=== PATIENT | male | born 1935 | race African-American/Black ===

== ENCOUNTER 2025-08-22 14:07 | Inpatient (IN) ==
[2025-08-22 14:57] LABS: IMMATURE GRANULOCYTE # (AUTO) 0.0 (0.0-1.0); IMMATURE GRANULOCYTE % (AUTO) 0.2 % (0.0-5.0); RDW COEFFICIENT OF VARIATION 18.3 % (11.6-14.8)
[2025-08-22] MEDS: LASIX IVP STA (15:03)
[2025-08-22 15:09] LABS: CREATININE 1.23 mg/dL (0.60-1.10)
--- NOTE | 2025-08-22 15:14 | ED.PDOC ---
General HPI ED Provider: Dr. GLADYS VILLANUEVA MD Chief Complaint: Shortness of Air Stated Complaint: 89 yo BM complains of increasing CHAVEZ at 10 feet, sx for the past 2-3 days. No fever, cough or chest pain. No PND. Hx of CAD and had heart cath abut 8 months ago with 100% stenosis of the distal LAD with collaterals and moderate proximal lesion of OM1 and it was felt medical management is appropriate. He did have an ECHO then that showed ejection fx of 35-40%. He was admitted to [facility] in May and stay 2 days. He is on Bumex twice daily and takes one dose at nighttime and have "terrible time sleeping" due to frequent trips to the bathroom at night. He admits to drinking a lot of water and noticed some swelling in the legs and scrotal area. Unk if any weight gain. He said he went into [facility] at 170# and got to a low of 140#. Time Seen by Provider: 08/22/25 14:24 Mode of Arrival: Walk-In Information Source: Patient Exam Limitations: No limitations Primary Care Provider: SHARON ESTEVES Referred to ED by: Other (self) Nursing and Triage Documentation Reviewed and Agree: Yes Opioid Naive vs. Tolerant Does Patient Take Opioids?: No What is Opioid Naive?: *Opioid Naive implies the patient is not already taking opioids or not chronically receiving opioids on a daily basis. *PRN dosing is not "usually" associated with tolerance. *Patients are at higher risk of over-sedation and aspiration. What is Opioid Tolerant?: *Opioid Tolerance implies less than the expected response to an opioid. *Acquired tolerance is defined by the patient taking 60mg of oral morphine daily (or equianalgesic dose of another opioid) for 1 week or more. *Often associated with chronic pain. *May take more than usual dose to achieve desired pain control. Review of Systems Review Of Systems Constitutional: Denies Chills, Diaphoresis, Fever, Weakness or Loss of appetite Eyes: Reports No symptoms Ears, Nose, Mouth, Throat: Reports No symptoms Respiratory: Reports Shortness of Breath; Denies Cough Cardiac: Reports Edema; Denies Chest pain GI: Reports No symptoms : Denies Burning, Frequency or Hematuria Musculoskeletal: Reports No symptoms Skin: Reports No symptoms Neurological: Reports No symptoms PFSH [facility] Medical History Hyperlipemia E78.5 - Hyperlipidemia, unspecified (ICD-10) Hypertension I10 - Essential (primary) hypertension (ICD-10) Surgical History H/O hernia repair Z98.890 - Other specified postprocedural states (ICD-10) Z87.19 - Personal history of other diseases of the digestive system (ICD-10) Physical Exam Physical Exam Appearance: Reports Well-appearing and Well-nourished Pain Distress: None Eyes: Reports EOMI ENT: Reports Ears normal and Oropharynx normal Neck: Supple Respiratory: Reports Breath sounds equal, Respirations nonlabored, Crackles and Rhonchi; Denies Wheezes or Retractions Cardiovascular: Reports RRR, Pulses normal, No rub and No murmur GI/: Reports Soft, Nontender, No masses, Bowel sounds normal, No Organomegaly and Other (scrotal and lower abdominal wall edema) Musculoskeletal: Reports Normal strength, ROM intact and Edema Skin: Reports Warm and Dry Neurological: Reports Sensation intact and Motor intact Psychiatric: Reports Affect appropriate and Mood appropriate Interpretation EKG Interpretation EKG Interpretation By: ED Physician Time of EKG #1: 14:44 Rate: Normal Rhythm: Sinus Ectopy: PVCs [place]: Left Interpretation: NSR, LAD, inferior and ant infarct, age undetermined, Abnormal EKG Course Course 08/22/25 14:50 08/22/25 14:50 Orders, Labs, Meds: Lab Review 08/22/25 14:50 WBC 8.82 RBC 3.84 L Hgb 12.7 L Hct 38.9 L MCV 101.3 H MCH 33.1 H MCHC 32.6 RDW Coeff of [place] 18.3 H Plt Count 168 Immature Gran % (Auto) 0.2 Neut % (Auto) 64.7 Lymph % (Auto) 25.4 [place] % (Auto) 9.0 Eos % (Auto) 0.5 Baso % (Auto) 0.2 Neut # (Auto) 5.7 Lymph # (Auto) 2.2 [place] # (Auto) 0.8 Eos # (Auto) 0.0 Baso # (Auto) 0.0 Immature Gran # (Auto) 0.0 Sodium 138.7 Potassium 3.59 Chloride 98.6 Carbon Dioxide 35.2 H Anion Gap 8.49 BUN 32.8 H Creatinine 1.23 H Estimated GFR (MDRD) 67.00 BUN/Creatinine Ratio 26.66 Glucose 106.1 H Calcium 9.51 Total Bilirubin 0.82 AST 45.0 ALT 31.5 Alkaline Phosphatase 110.7 Troponin I 0.061 NT-Pro-B Natriuret Pep 48934 H Total Protein 7.94 Albumin 3.66 Globulin 4.28 Albumin/Globulin Ratio 0.85 Orders Category Date Time Status EKG-(ED & IP/OBS ONLY) Stat CARDIO 08/22/25 14:36 Completed Saline Lock [ED IV/MEDIPORT/POWERPORT] .ONCE EMERGENCY 08/22/25 14:35 Active CBC W/ AUTO DIFF Stat LAB 08/22/25 14:50 Completed CMP [COMPREHENSIVE METABOLIC PANEL] Stat LAB 08/22/25 14:50 Completed NT-PROBNP(ED) Stat LAB 08/22/25 14:50 Completed TROPONIN I Stat LAB 08/22/25 14:50 Completed 0.9 % Sodium Chloride [Saline Flush] Meds 08/22/25 14:35 Active 1 syr IVF PRN PRN Furosemide [Lasix] Meds 08/22/25 14:36 Discontinued 40 mg IVP ONCE STA CHEST, 1V AP ONLY Stat RADS 08/22/25 14:35 Completed Medications Generic Name Dose Route Start Last Admin Trade Name Freq PRN Reason Stop Dose Admin Sodium Chloride 1 syr 08/22/25 14:35 0.9% Sodium Chloride 10 Ml Disp.Syrin IVF PRN PRN To flush IV Discontinued Medications Generic Name Dose Route Start Last Admin Trade Name Freq PRN Reason Stop Dose Admin Furosemide 40 mg 08/22/25 14:36 08/22/25 15:03 Furosemide Inj 40 Mg/4 Ml Vial IVP 08/22/25 14:37 40 mg ONCE STA Administration BNP much higher than before. He did dropped his BNP on RA to 88%. Given lasix 40 mg IVP earlier. His current weight is 163#. Discussed with hospitalist Zo and will admit Vital Signs: Temp Pulse Resp BP Pulse Ox 08/22/25 14:15 96.9 F L 87 14 103/69 95 Discharge Plan Discharge Patient Disposition: ADMITTED INPATIENT Discharge Problem: CHF (congestive heart failure) Did you review [place] DIRECTOR SOCIAL for ALL controlled substances?: Not Applicable ED Provider: GLADYS VILLANUEVA Condition: Fair
--- NOTE | 2025-08-22 15:25 | DI ---
EXAM: CHEST RADIOGRAPH TECHNIQUE: Single frontal chest radiograph. HISTORY: Shortness of breath. COMPARISON: 05/18/25 FINDINGS: There are stable chronic moderate bilateral pleural effusions. No infiltrates. There is cardiomegaly. The osseous structures are unremarkable. IMPRESSION: 1. Stable moderate bilateral pleural effusions.
[2025-08-22] MEDS ORDERED: TYLENOL PO PRN (15:59)
[2025-08-22 16:26] VITALS: BMI 22.1
[2025-08-22] MEDS: LASIX IVP SCH (21:49)
[2025-08-23 05:27] LABS: IMMATURE GRANULOCYTE # (AUTO) 0.0 (0.0-1.0); IMMATURE GRANULOCYTE % (AUTO) 0.3 % (0.0-5.0); RDW COEFFICIENT OF VARIATION 18.3 % (11.6-14.8)
[2025-08-23 05:53] LABS: CREATININE 1.19 mg/dL (0.60-1.10)
[2025-08-23] MEDS: K-DUR PO ONE (09:03)
[2025-08-23] MEDS: TOPROL XL PO SCH (09:03)
[2025-08-23] MEDS: PROTONIX PO SCH (09:04)
[2025-08-23] MEDS: COZAAR PO SCH (09:04)
[2025-08-23] MEDS: LIPITOR PO SCH (09:04)
[2025-08-23] MEDS: PLAVIX PO SCH (09:04)
[2025-08-23] MEDS: ALDACTONE PO SCH (09:04)
[2025-08-23] MEDS: ASPIRIN EC PO SCH (09:04)
--- NOTE | 2025-08-23 12:59 | PCM ---
Date of Service Date Seen by Provider: 08/23/25 Time Seen by Provider: 09:00 Admit Day/Time Admission Date: 08/22/25 Admission Time: 15:37 Reason for Admission Chief Complaint: CHF Hospital Provider Hospital Provider: RAFAEL IRVIN PA-C, [facility] [place] Physician Primary Care Physician: SHARON ESTEVES History of Present Illness History of Present Illness: Patient is an 89 year old male from home who presents for worsening SOB over last few days. Patient states he's noticed more swelling and SOB especially with exertion. He contributes to taking his bumex at 0600 and at midnight, he's wo rried he's taking them too close together, allow the fluid to build up. [place] [address], above his baseline, CXR showing pleural effusions, and was hypoxic into 80s, placed on 2L. Admitted to [facility]. Given lasix IV in the ER. Today patient states he's feeling better but still SOB with exertion. Case Discussed With Case Discussed With: Patient's case was discussed with the ER Physicians, Dr. Saez [facility] Medical History Hyperlipemia E78.5 - Hyperlipidemia, unspecified (ICD-10) Hypertension I10 - Essential (primary) hypertension (ICD-10) Surgical History H/O hernia repair Z98.890 - Other specified postprocedural states (ICD-10) Z87.19 - Personal history of other diseases of the digestive system (ICD-10) Allergies Allergies Allergy/AdvReac Type Severity Reaction Status Date / Time No Known Allergies Allergy Verified 08/22/25 14:59 Current Medications Home Medications Acetaminophen (Acetaminophen 325 Mg Tablet) 650 mg PO Q4H PRN PRN Reason: Mild Pain Aspirin (Aspirin 81 Mg Tablet.) 81 mg PO DAILY [facility] Last Admin: 08/23/25 09:04 Dose: 81 mg Atorvastatin Calcium (Atorvastatin Calcium 20 Mg Tablet) 40 mg PO DAILY [facility] Last Admin: 08/23/25 09:04 Dose: 40 mg Clopidogrel Bisulfate (Clopidogrel Bisulfate 75 Mg Tablet) 75 mg PO DAILY [facility] Last Admin: 08/23/25 09:04 Dose: 75 mg Furosemide (Furosemide Inj 40 Mg/4 Ml Vial) 40 mg IVP Q8HR [facility] Last Admin: 08/23/25 13:29 Dose: 40 mg Losartan Potassium (Losartan Potassium 25 Mg Tablet) 50 mg PO DAILY [facility] Last Admin: 08/23/25 09:04 Dose: 50 mg Metoprolol Succinate (Metoprolol Succinate 25 Mg Tab.Er.24h) 25 mg PO DAILY [facility] Last Admin: 08/23/25 09:03 Dose: 25 mg Pantoprazole Sodium (Pantoprazole Sodium 40 Mg Tablet.Dr) 40 mg PO QDAC2 [facility] Last Admin: 08/23/25 09:04 Dose: 40 mg Sodium Chloride (0.9% Sodium Chloride 10 Ml Disp.Syrin) 1 syr IVF PRN PRN PRN Reason: To flush IV Last Admin: 08/23/25 05:09 Dose: 1 syr Spironolactone (Spironolactone 25 Mg Tablet) 12.5 mg PO DAILY [facility] Last Admin: 08/23/25 09:04 Dose: 12.5 mg aspirin 81 mg capsule 81 mg PO DAILY 01/09/25 [History Confirmed 08/22/25] atorvastatin 40 mg tablet 40 mg PO DAILY 01/09/25 [History Confirmed 08/22/25] clopidogrel 75 mg tablet 75 mg PO DAILY 01/09/25 [History Confirmed 08/22/25] metoprolol succinate 25 mg tablet,extended release 24 hr 25 mg PO DAILY 01/09/25 [History Confirmed 08/22/25] losartan 50 mg tablet 50 mg PO DAILY 03/19/25 [History Confirmed 08/22/25] pantoprazole 40 mg tablet,delayed release 40 mg PO DAILY 03/19/25 [History Confirmed 08/22/25] spironolactone 25 mg tablet 12.5 mg PO DAILY 03/19/25 [History Confirmed 08/22/25] bumetanide 1 mg tablet 1 mg PO 2XD 08/22/25 [History Confirmed 08/22/25] Opioid Naive vs. Tolerant Does Patient Take Opioids?: No Is Patient Opioid Naive?: Yes What is Opioid Naive?: *Opioid Naive implies the patient is not already taking opioids or not chronically receiving opioids on a daily basis. *PRN dosing is not "usually" associated with tolerance. *Patients are at higher risk of over-sedation and aspiration. Is Patient Opioid Tolerant?: No What is Opioid Tolerant?: *Opioid Tolerance implies less than the expected response to an opioid. *Acquired tolerance is defined by the patient taking 60mg of oral morphine daily (or equianalgesic dose of another opioid) for 1 week or more. *Often associated with chronic pain. *May take more than usual dose to achieve desired pain control. Review of Systems Constitutional: Reports Fatigue and Weakness; Denies Fever Head: Reports Normocephalic and Atraumatic Cardiovascular: Reports Edema; Denies Chest pain Respiratory: Reports Shortness of air; Denies Cough Gastrointestinal: Denies Nausea, Vomiting, Diarrhea, Abdominal pain or Melena Genitourinary: Denies Dysuria or Hematuria Physical examination Most Recent Vital Signs: Most Recent Vital Signs Temperature 97.1 F L 08/23/25 09:54 Temperature Source Temporal Artery Scan 08/23/25 09:54 Temperature Source Infrared 08/22/25 14:15 Pulse Rate 88 08/23/25 09:54 Respiratory Rate 16 08/23/25 05:32 Blood Pressure 114/60 08/23/25 09:54 Blood Pressure Mean 78 08/23/25 09:54 Blood Pressure Left Arm 100/74 08/22/25 16:00 Blood Pressure Location Left Arm 08/23/25 09:54 Blood Pressure Position Supine 08/23/25 09:54 O2 Sat by Pulse Oximetry 99 08/23/25 10:00 Oxygen Delivery Method Nasal Cannula 08/23/25 10:00 Oxygen Flow Rate 2 08/23/25 10:00 Height 5 ft 10 in 08/23/25 10:49 Weight 71.7 kg 08/23/25 10:49 Telemetry Type Remote Telemetry 08/23/25 07:00 Telemetry Monitoring Continues 08/23/25 07:00 Irregular Telemetry Rate (Approximate) 80-90 BPM 08/23/25 07:00 Telemetry Heart Rate 89 08/23/25 07:00 Telemetry SPO2 99 08/23/25 01:00 EKG VA Interval 0.15 08/23/25 07:00 EKG QRS Interval 0.07 08/23/25 07:00 Telemetry Strip Reading SR w PVCs 08/23/25 07:00 Appearance: Positive No Apparent Distress and Alert and Oriented x3 Skin: Positive [place], Warm and Good Turgor HEENT: Positive Normocephalic and Atraumatic Neck: Positive Supple and Midline Trachea Chest/Lungs: Positive Clear to Auscultation Bilaterally; Negative Rales, Rhonci or Wheezes Heart: Positive RRR GI/: Positive Soft, Nontender, Bowel Sounds Normal and No Distention Extremities: Positive Edema (1+ pitting edema woody lower ext ) Neurological: Positive Cranial Nerves Intact, Alert, Oriented and Muscle Strength 5/5 in Upper and Lower Extremities Bilaterally Psychiatric: Positive Oriented x4, Appropriate Mood and Appropriate Affect Labs This Visit Labs This Visit: Labs This Visit 08/22/25 08/23/25 14:50 04:55 WBC 8.82 7.48 RBC 3.84 L 3.73 L Hgb 12.7 L 12.4 L Hct 38.9 L 38.4 L MCV 101.3 H 102.9 H MCH 33.1 H 33.2 H MCHC 32.6 32.3 RDW Coeff of Fabio 18.3 H 18.3 H Plt Count 168 158 Immature Gran % (Auto) 0.2 0.3 Neut % (Auto) 64.7 58.5 Lymph % (Auto) 25.4 32.4 [place] % (Auto) 9.0 8.3 Eos % (Auto) 0.5 0.4 Baso % (Auto) 0.2 0.1 Neut # (Auto) 5.7 4.4 Lymph # (Auto) 2.2 2.4 [place] # (Auto) 0.8 0.6 Eos # (Auto) 0.0 0.0 Baso # (Auto) 0.0 0.0 Immature Gran # (Auto) 0.0 0.0 Sodium 138.7 141.9 Potassium 3.59 3.16 L Chloride 98.6 101.7 Carbon Dioxide 35.2 H 32.8 H Anion Gap 8.49 10.56 BUN 32.8 H 32.2 H Creatinine 1.23 H 1.19 H Estimated GFR (MDRD) 67.00 70.00 BUN/Creatinine Ratio 26.66 27.05 Glucose 106.1 H 95.1 Calcium 9.51 9.44 Total Bilirubin 0.82 0.61 AST 45.0 25.0 ALT 31.5 28.0 Alkaline Phosphatase 110.7 114.5 Troponin I 0.061 NT-Pro-B Natriuret Pep 06211 H Total Protein 7.94 7.18 Albumin 3.66 3.25 L Globulin 4.28 3.93 Albumin/Globulin Ratio 0.85 0.82 Imaging Imaging: EXAM: CHEST RADIOGRAPH TECHNIQUE: Single frontal chest radiograph. HISTORY: Shortness of breath. COMPARISON: 05/18/25 FINDINGS: There are stable chronic moderate bilateral pleural effusions. No infiltrates. There is cardiomegaly. The osseous structures are unremarkable. IMPRESSION: 1. Stable moderate bilateral pleural effusions. Review Statement Review Statement: I have independently reviewed and interpreted the labs/EKGs/imaging that were ordered by the ER provider. I have reviewed all outside records that are a vailable currently in our EMR including imaging/notes/labs from previous visits. Plan Plan: 1. Acute combined heart failure exacerbation - Continue lasix 40 q8hrs. Output not accurate in chart, he dumped urine down toilet. Wean O2 when able. I&Os. Daily weights. Fluid restrict. Last echo 05/2025 showed LVEF 25-30% and grade II diastolic dysfunction. Per cardiology note at [facility], has been unable to afford entresto or jardiance/farxiga. 2. Acute hypoxic respiratory failure due to HF exacerbation - Wean O2 when able 3. Hypertension - Cont home meds 4. Hyperlipidemia - Cont home meds 5. CAD - Had LHC on 12/2024 showing stenosis of the very distal LAD, otherwise mild to moderate nonobstructive disease. Medical therapy was recommended. Cont asa, plavix, statin, metoprolol. DVT Prophylaxis: Ambulation Time Spent: Greater than 80 minutes spent with patient, 50% of the time spent with this patient was devoted to counseling and coordination of care. [facility]in minutes spent discussing advance care planning. Admit to: Inpatient Discussed Plan of Care with Dr. Jose Melissa. Medications Medication Orders: Medications Ordered Category Date Time Status 0.9 % Sodium Chloride [Saline Flush] Meds 08/22/25 14:35 Active 1 syr IVF PRN PRN Acetaminophen [Tylenol] Meds 08/22/25 15:59 Active 650 mg PO Q4H PRN Aspirin [Aspirin EC] Meds 08/23/25 09:00 Active 81 mg PO DAILY Atorvastatin Calcium [Lipitor] Meds 08/23/25 09:00 Active 40 mg PO DAILY Clopidogrel Bisulfate [Plavix] Meds 08/23/25 09:00 Active 75 mg PO DAILY Furosemide [Lasix] Meds 08/22/25 21:00 Active 40 mg IVP Q8HR Losartan Potassium [Cozaar] Meds 08/23/25 09:00 Active 50 mg PO DAILY Metoprolol Succinate [Toprol Xl] Meds 08/23/25 09:00 Active 25 mg PO DAILY Pantoprazole Sodium [Protonix] Meds 08/23/25 09:00 Active 40 mg PO QDAC2 Spironolactone [Aldactone] Meds 08/23/25 09:00 Active 12.5 mg PO DAILY
[2025-08-24 05:32] VITALS: RESP 16
[2025-08-24 05:42] LABS: IMMATURE GRANULOCYTE # (AUTO) 0.0 (0.0-1.0); IMMATURE GRANULOCYTE % (AUTO) 0.1 % (0.0-5.0); RDW COEFFICIENT OF VARIATION 18.4 % (11.6-14.8)
[2025-08-24 05:56] LABS: CREATININE 1.18 mg/dL (0.60-1.10)
[2025-08-24 10:50] VITALS: BP 111/73; PULSE 94; TEMP 96.8
--- NOTE | 2025-08-24 10:52 | DCSUM ---
Admission Date Admission Date: 08/22/25 Discharge Date Discharge Date: 08/24/25 Admission Diagnosis Admission Diagnosis: 1. Acute combined heart failure exacerbation 2. Acute hypoxic respiratory failure due to HF exacerbation Discharge Diagnosis Discharge Diagnosis: 1. Acute combined heart failure exacerbation 2. Acute hypoxic respiratory failure due to HF exacerbation - resolved 3. Hypertension 4. Hyperlipidemia 5. CAD Hospital Provider Hospital Provider: RAFAEL IRVIN PA-C, [facility] Primary Care Physician Primary Care Physician: SHARON ESTEVES Summary of History and Physical Summary of History and Physical: Patient is an 89 year old male from home who presents for worsening SOB over last few days. Patient states he's noticed more swelling and SOB especially with exertion. He contributes to taking his bumex at 0600 and at midnight, he's worried he's taking them too close together, allow the fluid to build up. [place] [address], above his baseline, CXR showing pleural effusions, and was hypoxic into 80s, placed on 2L. Admitted to [facility]. Given lasix IV in the ER. Today patient states he's feeling better but still SOB with exertion. Hospital Course Subjective: Patient states he has urinated a large volume, although our documented output is not correct. Patient was noted to be flushing urine instead of saving it to be measured. His edema is resolved. He feels at his baseline from a breathing standpoint. He did a 6 minute walk with RT and did not become SOB and did not qualify for home O2. He states he was taking his bumex at 0600 and at midnight, we discussed taking his evening dose around 6 PM instead to space it out better. Also discussed fluid restriction, as he states he drinks a lot during the day. Also discussed weighing himself at home and calling PCP for adjustments prn if his weight trends up 3-5 lbs. He expresses understanding. Discussed if these measures don't help, his diuretic doses may need adjusted. F/u with pcp. Patient agrees to plan of care. Appearance: Pleasant, No Apparent Distress and Alert HEENT: MMM CVS: Other (RRR) Abdomen: Soft, Non-Tender and No Distention Respiratory: No Accessory Muscle Use Extremities: No Edema (improved ) Vital Signs: Most Recent Vital Signs Temperature 96.8 F L 08/24/25 10:00 Temperature Source Temporal Artery Scan 08/24/25 10:00 Temperature Source Infrared 08/22/25 14:15 Pulse Rate 94 08/24/25 10:00 Respiratory Rate 16 08/24/25 10:00 Blood Pressure 111/73 08/24/25 10:00 Blood Pressure Mean 85 08/24/25 10:00 Blood Pressure Left Arm 100/74 08/22/25 16:00 Blood Pressure Location Left Arm 08/24/25 10:00 Blood Pressure Position Sitting 08/24/25 05:30 O2 Sat by Pulse Oximetry 98 08/24/25 10:00 Oxygen Delivery Method Room Air 08/24/25 10:00 Oxygen Flow Rate 2 08/24/25 08:29 Height 5 ft 10 in 08/23/25 10:49 Weight 70.307 kg 08/24/25 09:53 Telemetry Type Remote Telemetry 08/24/25 07:00 Telemetry Monitoring Continues 08/24/25 07:00 Irregular Telemetry Rate (Approximate) 80-90 BPM 08/23/25 07:00 Telemetry Heart Rate 95 08/24/25 07:00 Telemetry SPO2 100 08/24/25 01:00 EKG [place] Interval 0.16 08/24/25 07:00 EKG QRS Interval 0.08 08/24/25 07:00 Telemetry Strip Reading SR w/ PVCs 08/24/25 07:00 Imaging: EXAM: CHEST RADIOGRAPH TECHNIQUE: Single frontal chest radiograph. HISTORY: Shortness of breath. COMPARISON: 05/18/25 FINDINGS: There are stable chronic moderate bilateral pleural effusions. No infiltrates. There is cardiomegaly. The osseous structures are unremarkable. IMPRESSION: 1. Stable moderate bilateral pleural effusions. Lab Results Last 24 Hours: 08/24/25 05:15 WBC 7.87 RBC 3.74 L Hgb 12.4 L Hct 38.5 L MCV 102.9 H MCH 33.2 H MCHC 32.2 RDW Coeff of Fabio 18.4 H Plt Count 157 Immature Gran % (Auto) 0.1 Neut % (Auto) 62.4 Lymph % (Auto) 27.1 [place] % (Auto) 9.9 Eos % (Auto) 0.5 Baso % (Auto) 0.0 Neut # (Auto) 4.9 Lymph # (Auto) 2.1 [place] # (Auto) 0.8 Eos # (Auto) 0.0 Baso # (Auto) 0.0 Immature Gran # (Auto) 0.0 Sodium 142.1 Potassium 3.52 Chloride 105.3 Carbon Dioxide 30.3 H Anion Gap 10.02 BUN 33.6 H Creatinine 1.18 H Estimated GFR (MDRD) 71.00 BUN/Creatinine Ratio 28.47 Glucose 95.5 Calcium 9.88 Total Bilirubin 0.76 AST 20.9 ALT 26.6 Alkaline Phosphatase 108.8 Total Protein 7.31 Albumin 3.37 L Globulin 3.94 Albumin/Globulin Ratio 0.85 Discharge Instructions Discharge Planning: Discharge Planning > 70 minutes If patient is discharged with left ventricular systolic dysfunction: Discharged with a beta kenyetta? Y If no, why not? [] Discharged with an hannah/arb? Y If no, why not? [] Discharge Medications: Medications at Discharge (Home Meds & RX) aspirin 81 mg capsule 81 mg PO DAILY 01/09/25 atorvastatin 40 mg tablet 40 mg PO DAILY 01/09/25 clopidogrel 75 mg tablet 75 mg PO DAILY 01/09/25 metoprolol succinate 25 mg tablet,extended release 24 hr 25 mg PO DAILY 01/09/25 losartan 50 mg tablet 50 mg PO DAILY 03/19/25 pantoprazole 40 mg tablet,delayed release 40 mg PO DAILY 03/19/25 spironolactone 25 mg tablet 12.5 mg PO DAILY 03/19/25 bumetanide 1 mg tablet 1 mg PO 2XD 08/22/25 Discharge Plan Discharge Discharge Orders: Discharge Patient (ONCE); Ordered 08/24/25 Ordered By: RAFAEL IRVIN Activity Restrictions/Additional Instructions: DISCHARGE TO HOME DX: HEART FAILURE EXACERBATION FLUID RESTRICTION TO 2L OR LESS PER DAY You can fill your '[place]' water pitcher to 500ml, 4 times each day WEIGH YOURSELF DAILY AND CALL YOUR Primary Care Provider IF YOUR WEIGHT TRENDS UP 3-5LBS Activity as tolerated; rest when tired F/U WITH Primary Care Provider CONTINUE YOUR MEDICATIONS, CAN TAKE YOUR BUMEX (BUMETANIDE) EARLIER IN THE EVENING TIME Instructions: Heart Failure (DC), Low-Sodium Diet (GEN), Fluid Restriction (GEN) Care Plan Goals: Problem: Fluid Volume Excess Goal: Maintain adequate fluid volume Instructions: Maintain optimal head of bed placement Monitor respiratory status Monitor for edema Monitor hydration status Patient Disposition: HOME SELF-CARE Prescriptions: Continued losartan 50 mg tablet 50 mg PO DAILY spironolactone 25 mg tablet 12.5 mg PO DAILY pantoprazole 40 mg tablet,delayed release (DR/EC) 40 mg PO DAILY atorvastatin 40 mg tablet 40 mg PO DAILY metoprolol succinate 25 mg tablet extended release 24 hr 25 mg PO DAILY aspirin 81 mg capsule 81 mg PO DAILY clopidogrel 75 mg tablet 75 mg PO DAILY bumetanide 1 mg tablet 1 mg PO 2XD Did you review [place] PURCHASE PRICE ANALYST for ALL controlled substances?: Not Applicable Discussed opioids are addictive and Narcan is available by prescription or from pharmacy.: No Condition: Stable Referrals: SHARON ESTEVES [Primary Care Provider, Family Practice] - 08/29/25 10:30 am
[2025-08-24] MEDS: MILK OF MAGNESIA PO PRN (12:04)
== END 2025-08-24 14:05 | disposition home or self-care (01) | DRG 291 ==
LOC: ED 14:07 → MEDSURG B 14:07 → OBSVTOIN 15:37 → MEDSURG B 16:05
PROVIDERS: ADMIT Hospitalist; ATTEND Physician Assistant